=== PATIENT | female | born 1985 | race Caucasian/White ===

== ENCOUNTER 2018-03-15 16:54 | Outpatient (REF) | payer BC, SELFPAY ==
[2018-03-15 21:03] LABS: Anion Gap 8.7 mmol/L (3-11); BUN 10 mg/dL (7-18); CO2 27.3 mmol/L (21.0-32.0); CREATININE 0.73 mg/dL (0.55-1.02); Calcium 9.5 mg/dL (8.5-10.1); Chloride 103 mmol/L (98-107); Glucose 81 mg/dL (70-100); Potassium 5.3 mmol/L (3.5-5.1); Sodium 139 mmol/L (136-145)
== END 2018-03-15 16:55 ==
LOC: NCHCN 16:54
PROVIDERS: PCP Family Medicine; Visit Provider Family Medicine
DX: I10 Essential (primary) hypertension (principal)
CPT/HCPCS: 80048

== ENCOUNTER 2018-03-25 13:37 | Outpatient (REF) | payer BC, SELFPAY ==
[2018-03-25 19:50] LABS: Potassium 4.2 mmol/L (3.5-5.1)
== END 2018-03-25 13:57 ==
LOC: NCHCN 13:37
PROVIDERS: PCP Family Medicine; Visit Provider Family Medicine
DX: E78.5 Hyperlipidemia, unspecified (principal); I10 Essential (primary) hypertension
CPT/HCPCS: 84132

== ENCOUNTER 2018-09-06 19:17 | Outpatient (REF) | payer BC, SELFPAY ==
[2018-09-06 20:38] LABS: HCT 38.5 % (36.0-46.0); HGB 11.9 g/dL (12.0-15.5)
[2018-09-06 20:50] LABS: Hemoglobin A1C 5.9 % (4.5-6.2)
== END 2018-09-06 19:37 ==
LOC: NCHCN 19:17
PROVIDERS: PCP Family Medicine; Visit Provider Family Medicine
DX: R73.09 Other abnormal glucose (principal); D64.9 Anemia, unspecified
CPT/HCPCS: 83036; 85014; 85018

== ENCOUNTER 2019-03-22 16:17 | Outpatient (REF) | payer BC, SELFPAY ==
[2019-03-23 05:39] LABS: Anion Gap 8.9 mmol/L (3-11); BUN 13 mg/dL (7-18); CO2 26.1 mmol/L (21.0-32.0); CREATININE 1.07 mg/dL (0.55-1.02); Calcium 8.8 mg/dL (8.5-10.1); Chloride 104 mmol/L (98-107); Glucose 114 mg/dL (70-100); Potassium 4.1 mmol/L (3.5-5.1); Sodium 139 mmol/L (136-145)
== END 2019-03-22 16:37 ==
LOC: NCHCN 16:17
PROVIDERS: PCP Family Medicine; Visit Provider Family Medicine
DX: I10 Essential (primary) hypertension (principal)
CPT/HCPCS: 80048

== ENCOUNTER 2019-04-13 22:51 | Outpatient (REF) | payer BC, SELFPAY ==
[2019-04-13 21:22] LABS: CREATININE 0.71 mg/dL (0.55-1.02)
== END 2019-04-13 23:11 ==
LOC: NCHCN 22:51
PROVIDERS: PCP Family Medicine; Visit Provider Family Medicine
DX: R94.4 Abnormal results of kidney function studies (principal)
CPT/HCPCS: 82565

== ENCOUNTER 2019-12-28 11:33 | Outpatient (REF) | payer BC, SELFPAY ==
[2019-12-28 20:50] LABS: ALT 35 U/L (14-59); AST 17 U/L (15-37); Albumin 4.1 g/dL (3.4-5.0); Alkaline Phosphatase 94 U/L (46-116); Anion Gap 10.8 mmol/L (3-11); BUN 12 mg/dL (7-18); Bilirubin, Total 0.3 mg/dL (0.2-1.0); CO2 26.2 mmol/L (21.0-32.0); Calcium 9.3 mg/dL (8.5-10.1); Chloride 104 mmol/L (98-107); Glucose 99 mg/dL (74-106); Potassium 4.6 mmol/L (3.5-5.1); Sodium 141 mmol/L (136-145); Total Protein 8.5 g/dL (6.4-8.2)
[2020-01-01 15:12] LABS: Chlamydia Result Negative (Negative); GC Result Negative (Negative)
== END 2019-12-28 11:53 ==
LOC: NCHCN 11:33
PROVIDERS: PCP Family Medicine; Visit Provider Family Medicine
DX: I10 Essential (primary) hypertension (principal); R73.03 Prediabetes; E66.01 Morbid (severe) obesity due to excess calories; Z11.3 Encounter for screening for infections with a predominantly sexual mode of transmission
CPT/HCPCS: 80053; 87491; 87591; 83036

== ENCOUNTER 2020-12-09 09:15 | Outpatient (REF) | payer BC, SELFPAY ==
[2020-12-09 13:55] LABS: Hemoglobin A1C 6.1 % (<5.7)
[2020-12-09 14:05] LABS: ALT 37 U/L (14-59); AST 13 U/L (15-37); Albumin 3.9 g/dL (3.4-5.0); Alkaline Phosphatase 94 U/L (46-116); Anion Gap 12.1 mmol/L (3-11); BUN 9 mg/dL (7-18); Bilirubin, Total 0.4 mg/dL (0.2-1.0); CO2 25.9 mmol/L (21.0-32.0); CREATININE 0.7 mg/dL (0.55-1.02); Calcium 8.9 mg/dL (8.5-10.1); Calculated LDL 78 mg/dL (<100); Chloride 102 mmol/L (98-107); Cholesterol 136 mg/dL (<200); Glucose 100 mg/dL (74-106); HDL Cholesterol 41 mg/dL (40-60); Potassium 4.4 mmol/L (3.5-5.1); Sodium 140 mmol/L (136-145); Total Protein 7.7 g/dL (6.4-8.2); Triglyceride 86 mg/dL (<150)
== END 2020-12-09 09:16 | disposition home or self-care (01) ==
LOC: NCHCN 09:15
PROVIDERS: PCP Family Medicine; Visit Provider Family Medicine
DX: Z00.00 Encounter for general adult medical examination without abnormal findings (principal); R73.03 Prediabetes; I10 Essential (primary) hypertension; E66.01 Morbid (severe) obesity due to excess calories
CPT/HCPCS: 80053; 80061; 83036

== ENCOUNTER 2021-11-19 12:52 | Outpatient (REF) | payer SELFPAY ==
[2021-11-19 22:37] LABS: Anion Gap 12.7 mmol/L (3-11); BUN 13 mg/dL (7-18); CO2 23.3 mmol/L (21.0-32.0); CREATININE 0.7 mg/dL (0.55-1.02); Chloride 103 mmol/L (98-107); Glucose 99 mg/dL (74-106); Hemoglobin A1C 6.8 % (<5.7); Potassium 4.3 mmol/L (3.5-5.1); Sodium 139 mmol/L (136-145)
[2021-11-21 11:00] LABS: HIV-1/2 Ag & Ab Screen Negative (Negative)
[2021-11-21 11:42] LABS: Syphilis Serology (RPR) Negative (Negative)
[2021-11-21 23:06] LABS: Chlamydia Result Negative (Negative); GC Result Negative (Negative)
[2021-11-23 00:15] LABS: Chlamydia amplified RNA Negative (Negative); N gonorrhoeae amplified RNA Negative (Negative); Source THROAT
== END 2021-11-19 12:53 | disposition home or self-care (01) ==
LOC: NCHCN 12:52
PROVIDERS: PCP Family Medicine; Visit Provider Registered Nurse
DX: Z11.3 Encounter for screening for infections with a predominantly sexual mode of transmission (principal); Z11.4 Encounter for screening for human immunodeficiency virus [HIV]; R73.03 Prediabetes; E66.01 Morbid (severe) obesity due to excess calories; I10 Essential (primary) hypertension
CPT/HCPCS: 80048; 87389; 87491; 87591; 83036; 86592

== ENCOUNTER 2022-01-23 16:07 | Outpatient (REF) | payer SELFPAY ==
--- NOTE | 2022-01-23 15:00 | PAPFT_PTH ---
PATIENT: Al Marks LOC: [facility]#:[id number] AGE/SX: 37/F ROOM: RE01/23/[address]: Alex Thornton : 1985 BED: DIS: 01/23/2022 SPEC #: [id number] RECD: 01/26/22 09:07 STATUS: DAVION RENaman #: [id number] LORETTA: 01/23/22 15:[address]: Alex Thornton DEPT: [facility] Cytology RECD BY: Marnie Donahue Tissues: 1 - CX/ENDOCX FOR PAP SMEARS Procedures: PAP THIN PREP/[facility] Screening HPV DNA PROBE Comments: [id number] (CHLAMYDIA/GC)
[2022-01-27 15:26] LABS: Chlamydia Result Negative (Negative); GC Result Negative (Negative)
== END 2022-01-23 16:08 | disposition home or self-care (01) ==
LOC: NCHCN 16:07
PROVIDERS: PCP Family Medicine; Visit Provider Family Medicine
DX: Z11.3 Encounter for screening for infections with a predominantly sexual mode of transmission (principal); Z12.4 Encounter for screening for malignant neoplasm of cervix; Z11.51 Encounter for screening for human papillomavirus (HPV)
CPT/HCPCS: 87491; 87591; 88142; 87624

== ENCOUNTER 2023-06-22 17:12 | Outpatient (REF) | payer MEDICAID, SELFPAY ==
[2023-06-22 15:24] LABS: ALT 24 U/L (14-59); AST 19 U/L (15-37); Albumin 3.7 g/dL (3.4-5.0); Alkaline Phosphatase 78 U/L (46-116); Anion Gap 9.4 mmol/L (3-11); BUN 9 mg/dL (7-18); Bilirubin, Total 0.3 mg/dL (0.2-1.0); CO2 26.6 mmol/L (21.0-32.0); CREATININE 0.8 mg/dL (0.55-1.02); Calcium 8.9 mg/dL (8.5-10.1); Chloride 104 mmol/L (98-107); Estimated GFR 96.66 (mL/min/1.73m2); Glucose 114 mg/dL (74-106); Potassium 3.9 mmol/L (3.5-5.1); Sodium 140 mmol/L (136-145); Total Protein 7.8 g/dL (6.4-8.2)
[2023-06-22 15:31] LABS: Hemoglobin A1C 5.9 % (<5.7)
== END 2023-06-22 17:13 | disposition home or self-care (01) ==
LOC: NCHCN 17:12
PROVIDERS: PCP Family Medicine; Visit Provider Family Medicine
DX: I10 Essential (primary) hypertension (principal); R73.03 Prediabetes
CPT/HCPCS: 80053; 83036

== ENCOUNTER 2024-09-21 20:57 | Outpatient (REF) | payer MEDICAID, SELFPAY ==
[2024-09-21 21:21] LABS: ALT 25 U/L (14-59); AST 17 U/L (15-37); Alkaline Phosphatase 91 U/L (46-116); Anion Gap 6.8 mmol/L (3-11); BUN 8 mg/dL (7-18); Bilirubin, Total 0.3 mg/dL (0.2-1.0); CO2 30.2 mmol/L (21.0-32.0); CREATININE 0.7 mg/dL (0.55-1.02); Calcium 9.5 mg/dL (8.5-10.1); Calculated LDL 99 mg/dL (<100); Chloride 104 mmol/L (98-107); Cholesterol 163 mg/dL (<200); Estimated GFR 112.75 (mL/min/1.73m2); Glucose 100 mg/dL (74-106); HDL Cholesterol 43 mg/dL (>or=50); Potassium 4.2 mmol/L (3.5-5.1); Sodium 141 mmol/L (136-145); Total Protein 8.7 g/dL (6.4-8.2); Triglyceride 109 mg/dL (<150)
[2024-09-21 21:57] LABS: Hemoglobin A1C 6.3 % (<5.7)
== END 2024-09-21 20:58 | disposition home or self-care (01) ==
LOC: NCHCN 20:57
PROVIDERS: PCP Family Medicine; Visit Provider Family Medicine
DX: Z00.00 Encounter for general adult medical examination without abnormal findings (principal)
CPT/HCPCS: 80053; 80061; 83036

== ENCOUNTER 2025-01-23 15:37 | Outpatient (REF) | payer MEDICAID, SELFPAY ==
[2025-01-23 20:55] LABS: HCT 39.9 % (36.0-46.0); HGB 12.2 g/dL (11.2-15.7); MCH 26.2 pg (27.0-33.0); MCHC 30.6 % (32.0-36.0); MCV 86 fL (80-95); MPV 10.6 fL (8.0-11.0); Platelet Count 348 10^3/uL (130-400); RBC 4.66 10^6/uL (3.93-5.22); RDW 14.3 % (11.7-14.6); RDW-SD 44.2 fL; WBC 9.40 10^3/uL (4.4-10.8)
[2025-01-23 21:00] LABS: ALT 31 U/L (14-59); AST 25 U/L (15-37); Albumin 4.1 g/dL (3.4-5.0); Alkaline Phosphatase 87 U/L (46-116); Anion Gap 9.7 mmol/L (3-11); BUN 11 mg/dL (7-18); Bilirubin, Total 0.3 mg/dL (0.2-1.0); CO2 26.3 mmol/L (21.0-32.0); Calcium 9.6 mg/dL (8.5-10.1); Chloride 102 mmol/L (98-107); Estimated GFR 116.30 (mL/min/1.73m2); Glucose 100 mg/dL (74-106); Potassium 4.5 mmol/L (3.5-5.1); Sodium 138 mmol/L (136-145); Total Protein 8.4 g/dL (6.4-8.2)
== END 2025-01-23 15:38 | disposition home or self-care (01) ==
LOC: NCHCN 15:37
PROVIDERS: PCP Family Medicine; Visit Provider Family Medicine
DX: R77.9 Abnormality of plasma protein, unspecified (principal)
CPT/HCPCS: 80053; 85027